=== PATIENT | female | born 1955 | race Caucasian/White ===

== ENCOUNTER → 2024-12-15 18:58 | Outpatient (ROUT) | payer MEDICARE, OTHER, SELFPAY ==
[2024-12-15 19:04] LABS: Appearance Urine UA CLEAR; Bilirubin Urine UA NEGATIVE (NEGATIVE); Color Urine UA YELLOW; Glucose Urine UA NEGATIVE (Negative); Ketones Urine UA NEGATIVE (NEGATIVE); Leukocyte Esterase Urine UA NEGATIVE (NEGATIVE); Nitrite Urine UA NEGATIVE (Negative); Occult Blood Urine UA 1+ (Negative); Protein Urine UA NEGATIVE (Negative); Specific Gravity Urine UA 1.015 (1.000-1.035); Urobilinogen Urine UA 0.2 E.U./dL (0.2)
[2024-12-15 19:07] LABS: pH Urine UA 7.5 (4.5-8.0)
[2024-12-15 19:13] LABS: Bacteria Urine None Seen; Culture Indicated Urine Cult Not Indicated; RBC Urine 1-5/HPF (0-5/HPF); Squamous Epithelial Cell Urine None Seen (0-5/HPF); Transitional Epi Cells Urine None Seen (0-5/HPF); Urine Volume 10mL (spun); WBC Urine None Seen (0-5/HPF)
== END ==
PROVIDERS: PCP Family Medicine; Visit Provider Obstetrics & Gynecology Gynecology
DX: N81.89 Other female genital prolapse (principal)
CPT/HCPCS: 81001

== ENCOUNTER 2025-03-09 10:24 | Day surgery (SDC) | payer MEDICARE, OTHER, SELFPAY ==
--- NOTE | 2025-03-03 13:21 | PM.GYNHP.1 ---
History of Present Illness History of Present Illness Narrative: Leidy Rojo is a 69 year old female Date of procedure: March 09, 2025 Preoperative diagnosis:? Stage III cystocele, stage II uterine prolapse, no evidence of occult stress urinary incontinence Planned Procedure: Vaginal hysterectomy Uterosacral ligament vaginal vault suspension Anterior colporrhaphy Cystoscopy (No need for mid urethral sling) Postop Meds Tylenol 1000 mg, ?3 times a day? Motrin 600 mg (under age 65 yr) ,? 3 times a day Oycodone 5 mg,? take 1 pill every 4-6 hr as needed, # 15? Colace,? 1 pill BID, for constipation Patient counseled extensively about the Risks, Benefits, and Alternatives to surgery.? She was offered the opportunity to ask any questions, and all questions were answered. ? Surgical Risks include: Bleeding, Hemorrhage, Transfusion, Infection (especially wound or bladder), Injury to adjacent organs (especially bladder, ureter, bowel, blood vessels, nerves), Postop or Chronic Pain, need for Reoperation, and Life-threatening event (especially M.I., CVA, PE, DVT). Procedure Risks include: Failure to Cure condition, Recurrence of condition months or years later, Urinary incontinence, Voiding dysfunction or Urinary Retention with prolonged catheter use, Poor wound healing, Erosions of any mesh or graft used, Dyspareunia, Vaginal scarring or narrowing, Need for additional surgery (immediate or delayed).? The expected cure and improvement and failure rates were discussed. Patient counseled to avoid the following for 6 weeks after surgery: (1) Impact sports (like running or jumping), walking and stairs OK (2) Lifting over 20# (3) Sexual intercourse No limits after 6 weeks. ? Good exercise tolerance, > 4 Mets. Her current medications were reviewed, and instructions given over which to use and which to discontinue before surgery.? Post-operative care instructions reviewed.? We discussed post-operative pain: Pain should be in the mild-moderate range, but can be moderate-severe for the first few days.?? Prescriptions will typically be given for (1) acetaminophen (Tylenol) and (2) non-steroidal anti-inflammatory drug (NSAID, like Motrin or Naprosyn), use both together, around the clock. Prescription will also be given for a (3) narcotic pain medication. Use the narcotic as needed, as a booster to the Tylenol and NSAID. You might need 0-4 narcotic pills a day typically. The narcotic will only be needed for a few days.?? Gradually use less of the narcotic, but continue the Tylenol and NSAID.? After a few days, the narcotic should no longer be needed, and only the Tylenol and NSAID will be needed.? Warm packs or cold packs can also be used for pain.??Do not drive for as long as you are using the narcotic pain medication? - this should only be a few days.?? Constipation is associated with use of narcotic pain medications, and can be improved with use of a stool softener, or fiber, or a mild laxative.? CC: Bladder and uterine prolapse HPI:??69-year-old female who presents for evaluation of above complaint.?? She reports onset of symptoms 1 year ago.?? She considers this a? Moderate? problem. She has severe pelvic organ prolapse. She was planning to have surgery with Dr. Cornejo. However, Dr. Cornejo feels that her prolapse is so severe that it might fail the surgery that she was planning to do for the patient. So the patient is seeing me for 2nd opinion on surgical options. She notes a large vaginal bulge that protrudes beyond the vaginal opening. She has tried and failed pessaries. she had to use larger pessaries that caused her pain and she was not able to even use them for an hour. She has prolapse symptoms of vaginal bulge and heaviness. She has some pelvic pressure also, occasionally has some difficulty emptying the bladder and bowels but otherwise has no splinting and has mostly normal bladder and bowel function. She wakes at night 0-1 times to void, and voids about every 2 hours in the daytime. She thinks that she mostly empties her bladder well. She has no urinary incontinence. We discussed that she is at risk of postoperative urinary incontinence and would likely benefit from urodynamic bladder testing prior to surgery. No prior hysterectomy, prior x1, prior vaginal delivery x1. She is very active outside. She is still sexually active and wants to preserve sexual function. She had breast cancer in 2014, treated with a partial mastectomy and radiation therapy. She gets mammograms annually. Her prognosis is excellent. She is considered likely cured at this point. She has high blood pressure and arthritis. . Nonsmoker. ? Pelvic Floor Review of Systems: (HPI) Stress Urinary Incontinence symptoms (INGRID):??0 Triggers include:? Urge Incontinence symptoms (Urge UI):??0 Triggers include:? Pads: She wears 0 Overactive Bladder symptoms (OAB):? ? Frequency:??Every 2 hour Nocturia:??0-1? Urgency:??Minimal Prior incontinence treatment includes:? Medical:??None ? Surgical:? No ? Kegels:?? Yes Physical therapy:?No? Pessary:?No? Diet / Fluids: Fluid restriction:? No Excessive fluids:?No Pain symptoms:? Painful bladder:???No Dysuria:???No Dyspareunia:? No Dysmenorrhea:? No Urinary Risk Factors UTI?s, recurrent:??No Hematuria:? No Kidney Stones:?No? Tobacco use:? No Pelvic Organ Prolapse (POP) symptoms:?? Bulge:??Yes Pressure and /or? Heaviness:??Yes Splint for defecation or voiding:??No Voiding dysfunction: Abnormal stream:?No Strain to void:? No Incomplete emptying:?No Voiding difficulty:?No Retention:??? No Bowel Function: Constipation:??No? Strain to defecate:??No Fiber:??No Laxatives:??No Fecal Incontinence:? Liquid stool:? No Solid stool:?No?? Sexually active:??Yes Incontinence with sex:? No ? UroGyn ROS ROS Narrative ROS Narrative: General Review of Systems: Constitutional, CV, Endo, Musc-skel, Eyes, Cancer, Skin, Breast, GI, Heme/Lymph, Psych, Urinary, Neuro, Admissions Evaluator, Resp, Sexual:??? Pertinent positives listed above in HPI All others reviewed and negative. All reviewed on patient questionnaire.? . . [facility] Medical History (Updated 12/15/24 @ 14:09 by Ben Hammer MD) Uterine prolapse Cystocele, midline Glaucoma (~2013) Cataracts, bilateral (~2013) Colon polyps (~2010) Hypertension (~2002) Breast cancer (~2014) Actinic keratosis (~2016) Osteoarthritis Scoliosis (~1966) Measles (~1961) Chicken pox (~1956) Surgical History (Updated 07/22/24 @ 20:01 by Trinity Trammell) Anesthesia History of partial mastectomy of left breast (~2014) History of meniscectomy of right knee (~2003) History of section (~1980) Family History (Updated 07/22/24 @ 20:05 by Trinity Trammell) Father Cancer MelanomaMother History of heart disease HypertensionGrandfather CancerGrandmother No problems noted. Grandfather Kidney failureGrandmother History of heart disease Tobacco & Substance Use Smoking Status: Never smoker Allergies No Known Drug Allergies Allergy (Unverified 12/15/24 12:51) Medications hydrochlorothiazide 25 mg tablet 25 mg PO DAILY 11/28/24 [History Confirmed 12/15/24] UroGyn Exam Vitals 12/16/2511:58 Height 5 ft 2 in Weight 159 lb BMI 29.0 BP 118/70 Blood Pressure Location Lt brachial Position Sitting UroGyn Exam UroGyn Exam Narrative: General: healthy, alert, coherent, no acute distress, cooperative, nontoxic Pulmonary: normal breathing, no distress Abdomen: soft, no mass, non-distended, no hernia, non-tender Vulva: Normal labia majora, labia minora, introitus, and clitoris, non-tender Urethra meatus: normal, no discharge Perineum: Normal, non-tender Urethra: No mass, non-tender Bladder: no mass, non-tender Vagina: No lesions, no discharge, mild atrophy, non-tender Prolapse stage III cystocele, stage II uterine prolapse, mild rectocele does not need surgery Levators: Non-tender, Cervix: Normal, No lesions, no discharge, non-tender Uterus: normal size, non-tender Bimanual: no mass, no adnexal mass, non-tender Anus: No lesion, non-tender, no hemorrhoid Empty Cough Stress test: Neg PVR: 10 mL by catheter Urethral angle hypermobile: Yes Pelvic Organ Prolapse: Yes POP-Q Exam: Aa: 0 Ba: +4 Ap: -2 Bp: Minus C: 0 D: -4.5 TVL: 9.5 GH: +4 PB: 3.5 Introitus size: 2-3 fingerbreadths Cystocele stage: Stage 3 Rectocele stage: Stage I Uterine/Vault Prolapse Stage: Stage II Assessment & Plan (1) Cystocele, midline: Status: Acute (2) Uterine prolapse: Status: Acute Assessment and Plan ? Patient counseled regarding above conditions.? Educational materials given to patient. 1. Pelvic Organ Prolapse - Stage 3 cystocele, stage II uterine prolapse.? This diagnosis and its etiology was discussed with the patient.? Treatment options were discussed including: expectant management, pessary trial, and surgical intervention. We briefly discussed risks and benefits of surgery. All surgery for prolapse is not 100% successful and there is a chance of recurrence or failure. She declines a pessary she desires surgery my recommendation = vaginal hysterectomy, uterosacral ligament vault suspension, anterior colporrhaphy, possible sling see below for counseling 2. At risk for postop stress incontinence, due to her large stage III cystocele. We will schedule her for urodynamic evaluation to determine whether or not she has stress incontinence. If she has stress incontinence then we will proceed with a mid urethral sling at the time of the prolapse repair Follow-up:??? Urodynamics Then surgery 69-year-old female with stage III cystocele, stage II uterine prolapse, mild rectocele, presents for urodynamics. exam showed cystocele + 4 cm at point BA an 0 cm at point AA. Cervix at 0 cm Currently with no urinary incontinence symptoms but at risk for postoperative stress incontinence. For technical reasons, unable to do complex urodynamics. Therefore just simple cystometrogram and uroflow was done. We got all of the information related to volumes. But no information for pressure. This is adequate for her situation today Verbal consent obtained. Procedure explained in detail and all questions answered. She presented with a full bladder and was able to empty on the commode. She was able to void privately. She alerted us as to when she was starting and ending her void Void 310 cc Voiding time 21 seconds Average flow rate 14.8 cc/second She was then moved from the commode to the exam table, placed in stirrups, urethra cleaned with Betadine. Sixteen Jamaican Carpio catheter was inserted, balloon was not filled. Postvoid residual obtained, 10 cc Bladder was filled with sterile water through a 60 cc Tumi syringe attached to the Carpio catheter. 1st [id number] cc 1st [id number] cc Strong auik648 cc [id number] cc At 200 cc, the Carpio was removed. Cough stress test was done several times. Negative SENIOR SOFTWARE DEVELOPMENT ENGINEER. No stress incontinence. The Carpio catheter was reinserted and filled to capacity Repeat SENIOR SOFTWARE DEVELOPMENT ENGINEER at 250 cc was negative Repeat uroflow was done as above. [id number] cc Voiding time38 seconds Average flow rate 7 cc/second Assessment No evidence of stress incontinence Normal voiding No detrusor overactivity Normal cystometrogram Stage III cystocele Stage II uterine prolapse Plan TVH, U.S. VS, anterior repair. Possible BSO. No need for a sling for stress incontinence. Her preference is to have the ovaries and tubes removed, only if they are accessible vaginally. Declines laparoscopy Surgery date, March 09 We discussed surgery and recovery and pain management in detail. Pain management plan as Tylenol 1000 mg t.i.d., Motrin 400 mg t.i.d., oxycodone 5 mg, 1 pill every 4 hours as needed, 10 pills ordered Ben Hammer MD UroGynecology & Pelvic Reconstructive Surgery [facility] Medical History (Updated 12/15/24 @ 14:09 by Ben Hammer MD) Uterine prolapse Cystocele, midline Glaucoma (~2013) Cataracts, bilateral (~2013) Colon polyps (~2010) Hypertension (~2002) Breast cancer (~2014) Actinic keratosis (~2016) Osteoarthritis Scoliosis (~1966) Measles (~1961) Chicken pox (~1956) Surgical History (Updated 07/22/24 @ 20:01 by Trinity Trammell) Anesthesia History of partial mastectomy of left breast (~2014) History of meniscectomy of right knee (~2003) History of section (~1980) Family History (Updated 07/22/24 @ 20:05 by Trinity Trammell) Father Cancer Melanoma Mother History of heart disease Hypertension Grandfather Cancer Grandmother No problems noted. Grandfather Kidney failure Grandmother History of heart disease Social History Smoking Status: Never smoker Meds Home Medications and Allergies Home Medications ?Medication ?Instructions ?Recorded ?Confirmed ?Type hydrochlorothiazide 25 mg tablet 25 mg PO DAILY 11/28/24 01/20/25 History acetaminophen 500 mg tablet 1,000 mg (2 x 500 mg) PO TID #30 01/20/25 01/20/25 Rx (Tylenol Extra Strength) tabs docusate sodium 100 mg capsule 100 mg PO BID #30 caps 01/20/25 01/20/25 Rx (Colace) ibuprofen 400 mg tablet 400 mg PO TID #30 tabs 01/20/25 01/20/25 Rx oxycodone 5 mg tablet 5 mg PO Q8H PRN pain #10 tabs 01/20/25 01/20/25 Rx Allergies Allergy/AdvReac Type Severity Reaction Status Date / Time No Known Drug Allergies Allergy Unverified 01/20/25 13:34 Assessment & Plan Time-Based Coding :: [TOTAL MINUTES] spent with patient and on the chart (including review of chart, obtaining history, exam, reviewing outside data, placing orders, documenting exam and treatment plan, and counseling patient) on [DATE].
[2025-03-05 08:49] VITALS: BMI 29.0
[2025-03-09] VITALS (14 sets, daily range): BP systolic 94–150; BP diastolic 53–90; PULSE 65–93; RESP 10–97; TEMP 36.1–36.8; O2SAT 13–99; BMI 29.0
--- NOTE | 2025-03-09 | PATH_ITS ---
[facility] Accession Number: [id number] No. of containers..01 Tissue . 01 Material submitted: . uterus - UTERUS AND CERVIX . 01 Diagnosis: UTERUS AND CERVIX, HYSTERECTOMY: Uterus with atrophic endometrium. Cervix with atrophic changes. Negative for endometrioid intraepithelial neoplasia, intraepithelial lesions, and malignancy. [facility] 03/12/2025 1435 Local . 01 Electronically signed: . Carly Potts DO, Pathologist NPI- [id number] . 01 Gross description: . Received in formalin with two identifiers and uterus and cervix, is an intact uterus (55 grams, 6.5 cm superior to inferior, 4.4 cm medial to lateral, 3.1 cm anterior to posterior) with attached cervix (3.8 x 4.1 cm), with no additional adnexa. . The ectocervix is marquez and wrinkled with a patulous os, 1.1 cm in diameter. The anterior paracervical margin is inked blue while the posterior paracervical margin is inked black. The serosa is marquez and smooth with no hemorrhage or adhesion identified. The endocervical canal has marquez herringbone mucosa and measures 2.4 cm in length. The endometrial cavity is 2.0 cm from cornu to cornu and 2.9 cm in length with pink-marquez velvety endometrium that averages 0.1 cm thick. The myometrium is marquez and trabecular measuring up to 1.2 cm in maximum thickness with no nodules or lesions identified. Beer Still Runner Compounder sections are submitted as follows: . A1: Anterior cervix. A2: Posterior cervix. A3: Anterior full thickness section. A4: Posterior full thickness section. ([id number]) /V 03/10/2025 1818 Local . 01 Pathologist provided ICD-10: N81.2 . 01 CPT . 363030 Specimen Comment: A courtesy copy of this report has been sent to [facility] Pathology Specimen Comment: A duplicate report has been generated due to demographic updates. Performed at: [address] [id number] MD Vikas Salmeron MD Phone: [phone]
[2025-03-09] MEDS: ACETAMINOPHEN 325 MG TABLET 975 MG PO ×2 (11:03→19:05)
[2025-03-09] MEDS: PHENAZOPYRIDINE 100 MG TABLET 200 MG PO (11:03)
[2025-03-09] MEDS: GABAPENTIN 300 MG CAPSULE PO (11:04)
[2025-03-09] MEDS: SCOPOLAMINE 1 PATCH TOP (11:06)
[2025-03-09] MEDS: LACTATED RINGERS 1,000 ML 42 ML IV (11:07)
--- NOTE | 2025-03-09 11:25 | EKG_ITS ---
[address] [address] Test Date: 2025-03-09 Pat Name: Leidy Rojo Department: Room: [facility] [place] Gender: Female Business Account Manager: Mary URENA : 1955 Requested By: Order Number: [id number] Reading MD: Aubrey Blanchard Measurements Intervals Connelly Rate: 76 P: 57 UT: 184 QRS: 50 QRSD: 92 T: 52 QT: 402 QTc: 452 Interpretive Statements Normal sinus rhythm Electronically Signed On 03-13-2025 0:03:37 PDT by Aubrey Blanchard
--- NOTE | 2025-03-09 12:00 | PM.PREOP ---
Pre-operative Note Interval Note History & Physical reviewed/Exam performed by Physician: Yes Changes to H&P: No
[2025-03-09] MEDS: CEFAZOLIN 2 GM/100 ML PREMIX 100 ML IV (12:29)
[2025-03-09] MEDS: LIDOCAINE 1% W/EPI 10ML 20 ML INJ (12:51)
--- NOTE | 2025-03-09 12:59 | SUR.OPER ---
Lithotomy on padded OR bed. Winder Pad Positioner under torso. Head on pillow, arms padded and tucked at sides. Legs secured in padded yellow fins stirrups. Cloth strap from bed pack across chest.
--- NOTE | 2025-03-09 14:50 | PM.GYNOP.1 ---
Operative Date/Time/Diagnoses Date of procedure: 03/09/25 Time of procedure: 12:51 Pre-op diagnosis: Cystocele, uterine prolapse Post-op diagnosis: same Procedure & Clinicians Procedure: Procedures Operation Date: 03/09/25 11:45 Actual Procedure Side Surgeon p Total Vaginal Hysterectomy Ben Hammer MD s uterosacral vault suspension, anterior repair Ben Hammer MD Operative Notes Findings: Operative Note Surgeon:? Ben Hammer MD Lithographic Plate Maker Apprentice:?? Dr. Letty Maldonado MD Pre-Op Diagnosis:?? Uterine prolapse, cystocele Post-Op Diagnosis:?? Same? Procedure:?? Vaginal hysterectomy, uterosacral ligament vaginal vault suspension, anterior colporrhaphy, cystoscopy Findings (brief): ? 1.? EUA with POP as noted on preop exam. stage 3, cystocele to +4 Normal size uterus, tubes, ovaries.?? TVH in usual fashion.? 2.? USVS with 2 sutures of 0-PDS on each side.? Excellent apical support when done.? Cystoscopy with bilateral ureteral jets noted.? 3.? Anterior colporrhaphy in usual fashion. First with running 2-0 vicryl to repair the VV fascia, then 6 mattress sutures of 2-0 vicryl. ? 4.? Cystoscopy with normal bladder, urethra, ureters,? no injury. ? Date of Surgery:? March 09, 2025 Complications:? None Specimens:? Uterus Anesthesia Technique: General endotracheal Estimated Blood Loss (mls):? 50 Blood Replacement (mls):? None Drains:? Patel Condition:? Stable Procedure in detail: After consent was confirmed, the patient was taken to the operating room and placed under general anesthesia without incident.? Sequential compression devices were in place and active.? She received perioperative antibiotics.? She was then prepped and draped in the usual sterile fashion after placement in the dorsal lithotomy position using the Emmanuel stirrups.? A Patel catheter was placed.? A weighted speculum was placed in the vagina and the cervix was grasped with a tenaculum. The cervix was circumferentially injected with 10-20 cc of 0.5% lidocaine / epinephrine 1:200,000.? A circumferential incision was made with electrocautery through the vaginal mucosa and carried down to the underlying cervical stroma. The posterior peritoneum was entered sharply and a retractor was placed.? Curved Sherie clamps and 0-vicryl sutures were used.? The uterosacral ligaments were clamped, cut, and ligated bilaterally, and then tagged for use later in the case.? The anterior peritoneum entered sharply, and a patel catheter was placed.? The cardinal ligaments were clamped, cut, and ligated bilaterally.? The uterine vessels were clamped, cut, and ligated bilaterally. The broad ligaments were clamped, cut, and ligated bilaterally.? The utero-ovarian ligaments were clamped, cut, and ligated bilaterally, and the cervix and uterus were removed.? Inspection of all pedicles was completed and hemostatis was assured.? The fallopian tubes and ovaries appeared grossly normal an were left in situ, as they were of very high and not able to be removed vaginally without significant risk. ? A large laparotomy surgical sponge was placed into the pelvis and a Sindi retractor was used to elevate the sponge and bowel to expose the pelvic sidewalls and utero-sacral ligaments.? Tension was placed on the previously tagged left Utero-Sacral ligament, and 2 sutures of 0-PDS were placed through the U-S ligament, just above the ischial spine, and tagged for use later.? The same procedure was done on the right U-S ligament.? Cystoscopy was performed to confirm ureteral patency with a 70 degree lens. The bladder and ureters were normal and bilateral ureteral efflux with pyridium was seen, first without and then with traction on the U-S ligament suspension sutures, confirming ureteral patency.? The large sponge was removed.?? Attention was then turned to the anterior vaginal wall. The anterior vaginal mucosa was grasped with Allis clamps and was injected with 10-20 cc of 0.5% lidocaine / epinephrine 1:200,000.? A midline incision was made with a scalpel, from the U-V junction to the apex. The vaginal mucosa was dissected off of the underlying pubocervical fascia until the sidewalls were reached.?? The bladder fascia was plicated with running 2-0 vicryl, and then the vaginal mucosa was plicated with horizontal mattress sutures of 2-0 vicryl. Excess anterior vaginal mucosa was trimmed and the incision was closed with 2-0 vicryl. ? The 2 Left U-S ligament suspension sutures were passed through the left side of the vaginal apex, approximately at the left apical sidewall at the tagged left utero-sacral ligament, then about 1 -2 cm medial. The same procedure was done on the Right side. The vaginal cuff was closed with 2 running, locked sutures of 0-vicryl. The U-S ligament suspension sutures were tied, elevating the vaginal apex several centimeters deep into the pelvis. Cystoscopy was again performed to confirm ureteral patency with a 70 degree lens. The bladder and ureters were normal and bilateral ureteral efflux with pyridium was seen, confirming ureteral patency.? Sponge, needle and instrument count was correct.? The patient tolerated the procedure well and was taken to the recovery room in stable condition. Ben Hammer MD UroGynecology & Pelvic Reconstructive Surgery [place], [place]
[2025-03-09] MEDS: OXYCODONE IR 5 MG TABLET PO (15:28)
[2025-03-09] MEDS: GABAPENTIN 100 MG CAPSULE PO ×2 (19:05→20:55)
--- NOTE | 2025-03-09 19:56 | PC.NURSE ---
Patient was admitted from PACU to room 219 this afternoon post op. Oriented to room and call light. VSS. Denies pain, states she does have mild cramping. Carpio is in place and intact, draining clear orange colored urine. Patient resting comfortably, call light within reach.
[2025-03-09] MEDS: DOCUSATE 100 MG CAPSULE PO (20:55)
[2025-03-10] MEDS: ACETAMINOPHEN 325 MG TABLET 975 MG PO (02:46)
[2025-03-10 02:49] VITALS: BP 100/55; PULSE 89; RESP 16; TEMP 36.3; O2SAT 95
[2025-03-10] MEDS: LACTATED RINGERS 1,000 ML 42 ML IV (02:54)
[2025-03-10] MEDS: GABAPENTIN 100 MG CAPSULE PO (05:36)
--- NOTE | 2025-03-10 06:18 | PC.NURSE ---
Void trial performed. Bladder drained to gravity to ensure bladder is empty. 300cc sterile water instilled via gravity drainage, patel removed. Patient immediately got up and voided 300cc clear, yellow urine.
[2025-03-10 08:32] VITALS: BP 115/54; PULSE 79; RESP 16; TEMP 36.2; O2SAT 94
[2025-03-10] MEDS: DOCUSATE 100 MG CAPSULE PO (09:36)
--- NOTE | 2025-03-10 11:59 | PC.NURSE ---
Patient is eating lunch and then will be discharged home. She denies pain, kina pad with no bleeding.
--- NOTE | 2025-03-10 13:13 | CM.DANOTE ---
B DCP Assessment note pt is a 69yo F POD [address] Hammer. [facility]CP [facility]. per chart, [facility], able to void/ambulate indep. anticpate dc today. pt left prior to being seen by this EXHIBITIONS CURATOR. family was at bedside/transport home. no identified barriers to safe dc home at this time. will continue to follow as needed in case any needs arise TAMMIE Ortiz Discharge Planning/Care Management CM Discharge Assessment Start: 03/09/25 10:39 Freq: Status: Discharge Protocol: Document 03/10/25 13:12 SL (Rec: 03/10/25 13:13 SL Desktop) Discharge Planning Assessment Assigned Discharge TAMMIE De La Cruz Photographic Developer And Printer DPOA/Assigned Sergio, spouse Designee Name Contact Information [phone] Advance Directives? Yes Advance Directives No on File History Provided By Patient Prior Living House Arrangements Household Members spouse Type of Drives own vehicle transporation used prior to admit Independent with ADL Yes 's Is patient alert and Yes oriented? 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 Cardiac Clearance No Received Urinary Catheter No Present Hx Urinary Self No Catheterization Diabetes No Patient No Lactating No Marital Status Lives With spouse Patient Discharge Return Home Plan Description
== END 2025-03-10 12:24 | disposition home or self-care (01) ==
LOC: OR 10:26 → AC 10:26
PROVIDERS: PCP Family Medicine; Referring Provider Obstetrics & Gynecology Gynecology; Visit Provider Obstetrics & Gynecology Gynecology
PROC: (CPT 58260; principal; 2025-03-09 11:45)
PROC: (CPT 57283; 2025-03-09 11:45)
DX: N81.2 Incomplete uterovaginal prolapse (principal); I10 Essential (primary) hypertension; Z85.3 Personal history of malignant neoplasm of breast; N88.8 Other specified noninflammatory disorders of cervix uteri
CPT/HCPCS: 57283; 57240; 93005; J0690; J1100; J1885; J2405; J2704; J3010